=== PATIENT | male | born 1995 | race Caucasian/White ===

== ENCOUNTER → 2020-07-27 15:18 | Outpatient (CLI) | payer OTHER, SELFPAY ==
[2020-07-27] MEDS: COVID-19 VACC #1, MRNA(MOD) 100 MCG/0.5 ML VIAL IM (15:25)
== END ==
PROVIDERS: Visit Provider Internal Medicine
DX: Z23 Encounter for immunization (principal)
CPT/HCPCS: 0011A; 91301

== ENCOUNTER → 2020-08-22 15:15 | Outpatient (CLI) | payer OTHER, SELFPAY ==
[2020-08-22] MEDS: COVID-19 VACC #2, MRNA(MOD) 100 MCG/0.5 ML VIAL IM (15:19)
== END ==
PROVIDERS: PCP Family Medicine; Visit Provider Internal Medicine
DX: Z23 Encounter for immunization (principal)
CPT/HCPCS: 0012A; 91301

== ENCOUNTER → 2020-09-03 11:45 | Outpatient (CLI) | payer OTHER, SELFPAY ==
[2020-09-03 12:23] LABS: Add Manual Diff / Slide Review NO; Basophils Absolute Auto 100 /uL (0-100); Basophils Percent Auto 1.2 % (0-2); Eosinophils Absolute Auto 200 /uL (0-450); Eosinophils Percent Auto 3.7 % (2-4); Hematocrit 45.4 % (41-53); Hemoglobin 15.8 g/dL (13.5-17.5); Lymphocytes Absolute Auto 1900 /uL (1100-4500); Lymphocytes Percent Auto 37.6 % (25-40); Mean Corpuscular HGB Conc 34.8 % (30-36); Mean Corpuscular Hemoglobin 31.8 PG (26-34); Mean Corpuscular Volume 91.3 fL (80-100); Monocytes Absolute Auto 400 /uL (0-900); Monocytes Percent Auto 8.3 % (3-14); Neutrophils Absolute Auto 2500 /uL (1500-7000); Neutrophils Percent Auto 49.2 % (50-75); Platelet Count 276 X10^3/uL (150-400); Red Blood Cell Count 4.97 X10^6/uL (4.5-5.9); Red Cell Distribution Width 12.7 % (11.6-14.8); White Blood Cell Count 5.1 X10^3/uL (4.5-11.0)
[2020-09-03 12:32] LABS: Hemoglobin A1C% w Est Avg Glu 5.1 % (4.0-6.0)
[2020-09-03 13:08] LABS: Alanine Aminotransferase 17 IU/L (<50); Albumin 4.7 g/dL (3.5-5.0); Albumin Globulin Ratio 1.5 (1.0-2.8); Alkaline Phosphatase 62 U/L (38-126); Aspartate Aminotransferase 25 IU/L (17-59); BUN Creatinine Ratio 15.4 (6-22); Blood Urea Nitrogen 14 mg/dL (9-20); Calcium 9.9 mg/dL (8.4-10.2); Carbon Dioxide 29 mmol/L (22-32); Chloride 105 mmol/L (98-107); Cholesterol 169 mg/dL (140-199); Estimated Glomerular Filt Rate > 60.0 mL/min (>60); Globulin 3.2 g/dL (1.7-4.1); Glucose 95 mg/dL (70-100); HDL Cholesterol 33 mg/dL (40-60); HEMOLYSIS < 15 (0-50); LDL Cholesterol Calculated 110 mg/dL (<100); Potassium 4.7 mmol/L (3.4-5.1); Sodium 139 mmol/L (137-145); Total Protein 7.9 g/dL (6.3-8.2); Triglycerides 128 mg/dL (35-150)
[2020-09-04 19:11] LABS: Deamidated Gliadin Ab IgA 12 units (0-19); Deamidated Gliadin Ab IgG 3 units (0-19); Immunoglobulin A,Qn 189 mg/dL (90-386); t-Transglutaminase IgA <2 U/mL (0-3)
== END ==
PROVIDERS: PCP Family Medicine; Referring Provider Family Medicine; Visit Provider Family Medicine
DX: J30.2 Other seasonal allergic rhinitis (principal); Q67.6 Pectus excavatum; Z13.1 Encounter for screening for diabetes mellitus; Z13.220 Encounter for screening for lipoid disorders; Z82.62 Family history of osteoporosis
CPT/HCPCS: 36415; 80053; 80061; 82784; 83036; 83516; 85025

== ENCOUNTER → 2020-09-21 07:35 | Outpatient (CLI) | payer OTHER, SELFPAY ==
--- NOTE | 2020-09-21 07:36 | DI.ECHO.S_ITS ---
[facility] +---------+ : : [address] : [address] : : : : [id number] : : : : Phone: [phone]+ Echocardiogram Report + + :Name: TESSIE BOATENG Study Date: 09/21/2020 Height: 71 in : :[facility] ReadingLocation: Weight: 165 lb : : Gender: Male BSA: 1.9 m2 : :: 1995 Age: 25 yrs BP: 119/79 mmHg: :Reason For Study: Light-Headedness/Pre-Syncope : :Ordering Physician: DIONICIO, : :MARCOS Performed By: Brandon Inman : :Referring: MARCOS GREENBERG : + + Interpretation Summary Normal left ventricle size with low normal left ventricular systolic function. Left ventricular ejection fraction is estimated to be 50%. Normal right ventricle and both atria. No valvular abnormality. Procedure: A two-dimensional transthoracic echocardiogram with color flow and Doppler was performed. The study quality was technically good. There is no prior echocardiogram noted for this patient. The patient was in sinus rhythm with heart rates between 70-88 bpm during the exam. Left Ventricle: The left ventricle is normal in size and wall thickness. Left ventricular systolic function is low normal. Left ventricular ejection fraction is estimated to be 50%. There are no focal wall motion abnormalities. Diastolic parameters suggest probable normal left ventricular diastolic function and normal filling pressures. Right Ventricle: The right ventricle is normal in size and function. Atria: Both atria are normal in size. There is no Doppler evidence for an interatrial shunt. Mitral Valve: The mitral valve is normal in structure and function. There is no mitral regurgitation noted. Aortic Valve: The aortic valve is normal in structure and function. No aortic regurgitation is present. Tricuspid Valve: The tricuspid valve is normal in structure and function. There is a trace or physiologic amount of tricuspid regurgitation. Pulmonary artery pressures cannot be estimated because of the lack of a measurable TR jet velocity but the IVC suggests a CVP of around 3 mmHg. Pulmonic Valve: The pulmonic valve is normal in structure and function. There is mild pulmonic regurgitation. Great Vessels: The aortic root is normal size. The dimensions of the ascending aorta are normal. The IVC is of normal diameter and collapses greater than 50% with a sniff. This suggests a low right atrial pressure of 3 mm Hg. Pericardium/ Pleura There is no pericardial effusion. There is no pleural effusion. MMode/2D Measurements & Calculations LVIDd: 4.5 cm LVOT diam: 2.3 cm LVIDs: 3.4 cm Ao root diam: 2.9 cm FS: 24.6 % asc Aorta Diam: 2.7 cm IVSd: 0.56 cm LVPWd: 0.63 cm LV caba. diameter/BSA (cm/m^2): 2.3 LV sys. diameter/BSA (cm/m^2): 1.7 LA A2 area: 12.6 cm2 RA long axis: 3.8 cm LA A4 area: 8.7 cm2 RA area: 8.6 cm2 LA length (vol): 3.5 cm RA vol: 16.6 ml LA vol: 26.5 ml RA : 8.6 ml/m2 LA vol index: 13.6 ml/m2 RVD1 (basal): 2.2 cm TAPSE: 1.8 cm Doppler Measurements & Calculations Ao V2 max: 99.0 cm/sec LVOT Max Maynor: 88.0 cm/sec Ao V2 mean: 70.8 cm/sec LV V1 max P.1 mmHg Ao max P.9 mmHg LV V1 VTI: 17.0 cm Ao mean P.2 mmHg ALIYAH(I,D): 3.7 cm2 Ao V2 VTI: 19.7 cm ALIYAH(V,D): 3.8 cm2 sev ratio: 0.86 ALIYAH indexed to BSA (cm^2/m^2): 1.9 MV E max maynor: 83.1 cm/sec PA V2 max: 74.0 cm/sec MV A max maynor: 59.4 cm/sec PA V2 mean: 54.0 cm/sec MV E/A: 1.4 PA mean P.3 mmHg Med Peak E' Maynor: 11.6 cm/sec PA pr(Accel): 31.2 mmHg E/E' med: 7.2 Lat Peak E' Maynor: 16.0 cm/sec E/E' lat: 5.2 E/e' average: 6.2 MV dec time: 0.21 sec SV(LVOT): 73.7 ml Electronically signed by: Km Franco on Reading Physician:09/21/2020 05:32 PM
--- NOTE | 2020-09-21 08:52 | DI.CT.S_ITS ---
PROCEDURE: CT CHEST WO CON INDICATIONS: Pectus excavatum TECHNIQUE: Noncontrast 5 mm thick sections acquired from the pulmonary apices to the posterior costophrenic angles. 1 mm lung window, 5 mm thick coronal and sagittal and 7 mm axial MIP reformats were then acquired. For radiation dose reduction, the following was used: automated exposure control, adjustment of mA and/or kV according to patient size. COMPARISON: None. FINDINGS: Image quality: Excellent. Lungs and pleura: No acute air space opacities. No pleural effusions or pneumothorax. Central and peripheral airways are patent and normal in caliber. Mediastinum: Heart size is normal. No pericardial effusion. No mediastinal adenopathy by size criteria. Thoracic aorta and central pulmonary arteries are normal in size. Esophagus is normal in caliber. No hiatal hernia. Bones and chest wall: There is pectus excavatum. The Horacio index is 4.08. Mild dextrocurvature of the thoracic spine (7 degree) with the apex at T10-T11. No suspicious bony lesions. No vertebral body compression fractures. No axillary or supraclavicular adenopathy by size criteria. Thyroid gland is normal . Abdomen: Visualized upper abdominal solid organs and bowel loops appear normal in the absence of contrast. IMPRESSION: 1. Pectus excavatum with Horacio index 4.08. 2. Mild dextrocurvature of the thoracic spine with the apex at T 10-T11 (7 degree). Dictated by: Tamir Raman M.D. on 09/21/2020 at 10:21 Approved by: Tamir Raman M.D. on 09/21/2020 at 10:32
== END ==
PROVIDERS: PCP Family Medicine; Referring Provider Family Medicine; Visit Provider Family Medicine
DX: Q67.6 Pectus excavatum (principal); R42 Dizziness and giddiness
CPT/HCPCS: 71250; 93306